=== PATIENT | male | born 1970 | race Caucasian/White ===

== ENCOUNTER 2019-05-08 13:27 | Emergency (ER) | payer OTHER ==
--- NOTE | 2019-05-08 14:09 | ED ---
Respiratory - HPI Summary HPI Summary: Patient is a 49 y/o M presenting to [facility] with a chief complaint of exertional SOB worsening since 05/02/2019. He reports that he and his family have been self- quarantining because his was at a conference in [facility] last week with possible exposure to a positive case of COVID-19 there. His had been feeling unwell but has since recovered. On 05/04/2019, the patient had a full respiratory panel and COVID-19, and all results were negative. He has continued to fell unwell. He has been using his Albuterol inhaler, which helps with chest tightness. He endorses sore throat, nausea, and myalgias. He denies any fevers/ chills/cough/nasal or chest congestion. Symptoms currently rated 4/10 in severity. No past medical history. Nonsmoker, rare EtOH, no substance use. Medications reviewed. Allergies noted. - History of Current Complaint Chief Complaint: EDUpperRespComplaint Stated Complaint: RESP ISSUE PER PT Time Seen by Provider: 05/08/19 13:29 Hx Obtained From: Patient Onset/Duration: Lasting Days, Still Present Current Severity: Moderate Pain Intensity: 4 Character: Dyspnea on Exertion Aggravating Factor(s): Nothing Alleviating Factor(s): Other - Albuterol inhaler relieves chest tightness Associated Signs and Symptoms: SOB, Chest Pain - tightness - Allergy/Home Medications Allergies/Adverse Reactions: Allergies Allergy/AdvReac Type Severity Reaction Status Date / Time codeine Allergy Hives Verified 05/08/19 13:36 morphine Allergy Hives Verified 05/08/19 13:36 Home Medications: Home Medications NK [No Home Medications Reported] 05/08/19 [History Confirmed 05/08/19] PMH/Surg Hx/FS Hx/Imm Hx Endocrine/Hematology History: Denies: Hx Diabetes, Hx Thyroid Disease Cardiovascular History: Denies: Hx Hypertension Respiratory History: Denies: Hx Asthma, Hx Chronic Obstructive Pulmonary Disease (COPD) GI History: Denies: Hx Ulcer Musculoskeletal History: Denies: Hx Rheumatoid Arthritis, Hx Osteoporosis - Surgical History Surgical History: Yes Surgery Procedure, Year, and Place: left knee surgery x2. left ankle. cochlear implant right Infectious Disease History: No Infectious Disease History: Denies: Hx Clostridium Difficile, Hx Hepatitis, Hx Human Immunodeficiency Virus (HIV), Hx of Known/Suspected MRSA, Hx Shingles, Hx Tuberculosis, Traveled Outside the [place] in Last 30 Days - Family History Known Family History: Negative: Diabetes, Renal Disease - Social History Alcohol Use: Rare Hx Substance Use: No Substance Use Type: Reports: None Hx Tobacco Use: No Smoking Status (MU): Never Smoked Tobacco Review of Systems Negative: Fever, Chills Positive: Sore Throat Positive: Chest Pain - tightness Positive: Shortness Of Breath, Cough. Negative: Other - nasal/chest congestion Positive: Nausea Positive: Myalgia All Other Systems Reviewed And Are Negative: Yes Physical Exam - Summary Physical Exam Summary: Constitutional: Well-developed, Well-nourished, Alert. Appears weak, fatigued. ( -) Distressed Skin: Warm, Dry HENT: Normocephalic; Atraumatic Eyes: Conjunctiva normal Neck: Musculoskeletal ROM normal neck. (-) JVD, (-) Stridor, (-) Tracheal deviation Cardio: Rhythm regular, rate normal, Heart sounds normal; Intact distal pulses; The pedal pulses are 2+ and symmetric. Radial pulses are 2+ and symmetric. (-) Murmur Pulmonary/Chest wall: Effort normal. (-) Respiratory distress, (-) Wheezes, (-) Rales Abd: Soft, (-) tenderness, (-) Distension, (-) Guarding, (-) Rebound Musculoskeletal: (-) Edema Lymph: (-) Cervical adenopathy Neuro: Alert, Oriented x3 Psych: Mood and affect Normal Triage Information Reviewed: Yes Vital Signs On Initial Exam: Initial Vitals Temp Pulse Resp BP Pulse Ox 98.2 F 70 16 113/72 100 05/08/19 13:31 05/08/19 13:31 05/08/19 13:31 05/08/19 13:31 05/08/19 13:31 Vital Signs Reviewed: Yes Procedures - Sedation Patient Received Moderate/Deep Sedation with Procedure: No Diagnostics - Vital Signs Vital Signs Temp Pulse Resp BP Pulse Ox 05/08/19 13:31 98.2 F 70 16 113/72 100 - Laboratory Result Diagrams: 05/08/19 14:40 05/08/19 14:40 Lab Statement: Any lab studies that have been ordered have been reviewed, and results considered in the medical decision making process. - Radiology CXR Radiology Interpretation Completed By: Radiologist Summary of Radiographic Findings: Impression: No active cardiopulmonary disease. Dr. Ramos has reviewed this report. - EKG 1509 Cardiac Rate: Bradycardia - 57 BPM EKG Rhythm: Sinus Bradycardia Summary of EKG Findings: An EKG at 1509 reveals sinus bradycardia at 57 BPM. Early repol pattern. Dr. Ramos has reviewed and interpreted this EKG. Re-Evaluation - Re-Evaluation First Eval Re-Evaluation Time: 15:50 Comment: Discussed results and plan for discharge. Disposition - Course Course Of Treatment: Patient is a 49 y/o M presenting with respiratory symptoms since 05/02/2019, including exertional SOB, sore throat, nausea, and myalgias. Tested for COVID-19 on 05/04/2019 with self-quarantine since returned home from a conference in [facility] with possible cases. COVID-19 and respiratory panel negative at that time. Patient appears weak/fatigued on physical exam. Patient intially on droplet/contact precuations which were then removed after reviewing patient's records. Patient received Duoneb. Blood work without significant abnormalities. An EKG at 1509 reveals sinus bradycardia at 57 BPM, early repol pattern. CXR is negative. Patient able to ambulate well and maintain O2. All results discussed with patient. Patient is safe for discharge. Patient is advised to follow up with PCP in 2-3 days. Return precautions given. Patient agreeable with plan. - Diagnoses Provider Diagnoses: Viral syndrome, Dyspnea Discharge ED - Sign-Out/Discharge Documenting (check all that apply): Patient Departure - Patient will be discharged home. - Discharge Plan Condition: Stable Disposition: HOME Patient Education Materials: Viral Syndrome (ED), Dyspnea (ED) Referrals: [facility] [Outside] - 2 Days Additional Instructions: Follow up with your primary care provider in 1-2 days. Return to the emergency department for any new or worsening symptoms. - Attestation Statements Document Initiated by Scribe: Yes Documenting Scribe: Tiffanie Schneider Provider For Whom Radha is Documenting (Include Credential): Junaid Ramos DO Scribe Attestation: Tiffanie Uribe, scribed for Junaid Ramos DO on 05/08/19 at 1609. Status of Scribe Document: Ready
[2019-05-08] MEDS ORDERED: Albuterol/Ipratropium NEB.SOL* Albuterol 2.5 MG/Ipratropium 0.5 MG 3 ML INH ONE (14:36)
--- OUTSIDE RECORDS SUMMARY | 2019-05-08 14:58 | XMS REPORT | Continuity of Care Document ---
:1970 External Reference #:[id number] Author Name Ciara Lindquist DO Address [address] [place] [address] Care Team Providers Name Role Phone Patient Choice Care Team Information Staff Development Coordinator Rn Unavailable Problems Description No Information Available Social History Type Date Description Comments Sex Unknown Allergies, Adverse Reactions, Alerts Description No Information Available Medications Description No Information Available Immunizations Description No Information Available Vital Signs Description No Information Available Results Test Acquired Date Facility Test Result H/L Range Note Laboratory test 05/04/2019 [facility] Miscellaneous Test < pending> finding [address] [place] [id number] [phone] Laboratory test 05/04/2019 [facility] Resppcr Panel <pending> finding ( )- - CFM Rapid Flu A 05/04/2019 [facility] Influenza A Rapid Negative & B ( )- - Test Influenza B Rapid Test Negative Laboratory test 05/04/2019 [facility] CFM Rapid Strep Negative finding ( )- - A Procedures Description No Information Available Medical Devices Description No Information Available Encounters Description No Information Available Assessments Date Code Description Provider 05/04/2019 R50.9 Fever, unspecified Ciara Lindquist DO 05/04/2019 R05 Cough Ciara Lindquist DO Plan of Treatment No Information Available Functional Status Description No Information Available Mental Status Description No Information Available Referrals Description No Information Available
--- OUTSIDE RECORDS SUMMARY | 2019-05-08 14:58 | XMS REPORT | Continuity of Care Document ---
:1970 External Reference #:[id number] Author Name Ciara Lindquist, Address [address] [place] [address] Care Team Providers Name Role Phone Patient Choice Care Team Information Welder Assistant Unavailable Problems Description No Information Available Social History Type Date Description Comments Sex Unknown Allergies, Adverse Reactions, Alerts Active Allergies Reaction Severity Comments Date Codeine Hives 05/04/2019 Medications Active Medications SIG Qnty Indications Ordering Provider Date Proair HFA 2 puffs every 6 8.500gm Ciara Lindquist, 05/05/2019 hours inhalation DO 108(90Base) mcg/Act as needed Aerosol Immunizations Description No Information Available Vital Signs Date Vital Result Comment 05/04/2019 10:35am BP Systolic 112 mmHg BP Diastolic 72 mmHg Heart Rate 74 /min Body Temperature 97.3 F O2 % BldC Oximetry 97 % Results Test Acquired Date Facility Test Result H/L Range Note Laboratory test 05/04/2019 [facility] Miscellaneous <pending> finding [address] [place] [address] [phone] Laboratory test 05/04/2019 [facility] Resppcr Panel <pending> finding ( )- - Laboratory test 05/04/2019 [facility] Viral Culture SEE RESULT 1, [address] [place] [address] [phone] CFM Rapid Flu A 05/04/2019 [facility] Influenza A Rapid Negative & B ( )- - Test Influenza B Rapid Test Negative Laboratory test 05/04/2019 [facility] CFM Rapid Strep Negative finding ( )- - A 1 [id number] 2 SEE RESULT BELOW Name: NERY MARTINEZ : [address]: Ciara Lindquist DO Acct: [id number] Unit: [id number] AGE: 49 Location: [facility] Re05/04/19 SEX: M Status: REG REF SPEC: [id number] RUSSELL: 05/04/19-939 [facility] DR: Ciara Lindquist DO REQ: [id number] RECD: 05/04/19-1256 STATUS: COMP _ SOURCE: [facility]: ORDERED: Viral Cult [place] COMMENTS: NASOPHARYNGEAL AND OROPHARYNGEAL FOR COVID-19 Procedure Result Reported Site Viral Culture [facility] Final 05/06/19- 1620 ML 2019 nCoV Real-Time RT-PCR: Not Detected 05/06/2019 NOTE: The [facility] is approved by the Centers for Disease Control and Prevention (CDC) to test for 2019 novel coronavirus (2019_nCoV). The real-time RT-PCR assay for 2019_nCoV was developed by the CDC for the purpose of diagnostic testing to allow for rapid response during a declared public health emergency and has Emergency Use Authorization (EUA) from the FDA. At this time, positive 2019_nCoV real-time RT-PCR results should be considered presumptive until CDC confirmation. Negative 2019_nCoV RT-PCR results do not preclude 2019_nCoV infection and should not be used as the sole basis for patient management decisions. Additional information is available on the following FDA websites for health care providers and patients. https://www.fda.gov/media/689753/download https://www.fda.gov/media/157770/download Test Performed by: [address] [address] * ML - Main Lab . END OF REPORT DEPARTMENT OF PATHOLOGY, [address] [place] [address] Alexander Bowman M.D. Director [facility] # [id number] Procedures Description No Information Available Medical Devices Description No Information Available Encounters Type Date Location Provider Dx Diagnosis Office Visit 05/04/2019 8:45a CFM Main Ciara KarDO jessica R50.9 Fever, unspecified R05 Cough Assessments Date Code Description Provider 05/04/2019 R50.9 Fever, unspecified Ciara Karjessica DO 05/04/2019 R05 Cough Ciara ReggieDO jessica Plan of Treatment 05/04/2019 - Ciara Paredesjessica, DOR50.9 Fever, unspecifiedComments:Rapid flu negative Rapid strep negativeUsing appropriate PPE (gloves, goggles, mask and gown) pt wasseen and examinedHealth department contacted and agree with COVID- 19 testing given his symptoms and known exposure (via )Viral respiratory culture as well as COVID testing collected and sent to labPt advised strick quarantine until we get results Following day they asked for albuterol inhaler to be sent, which I did We reviewed in detail when to be seen again ([place] for worsening respiratory symptoms) otherwise we would be in touch with results and health department following closely as wellR05 Cough Functional Status Description No Information Available Mental Status Description No Information Available Referrals Description No Information Available
[2019-05-08 15:01] LABS: ABS Eosinophils 0.1 10^3/ul (0-0.6); ABS Lymphocytes 1.2 10^3/ul (1.0-4.8); ABS Monocytes 0.5 10^3/ul (0-0.8); ABS Neutrophils 3.1 10^3/ul (1.5-7.7); Eosinophil % 2.2 %; Hematocrit 42 % (42-52); Hemoglobin 14.5 g/dL (14.0-18.0); Lymphocyte % 24.9 %; Mean Corpuscular HGB Conc 35 g/dL (31-36); Mean Corpuscular Hemoglobin 31 pg (27-31); Mean Corpuscular Volume 89 fL (80-94); Mean Platelet Volume 9.1 fL (7.4-10.4); Nucleated Red Blood Cells % 0.1; Platelet Count 169 10^3/uL (150-450); Red Blood Count 4.68 10^6 /uL (4.18-5.48); Red Cell Distribution Width 13 % (10-15)
[2019-05-08 15:22] LABS: Albumin 4.2 g/dL (3.2-5.2); Albumin/Globulin Ratio 1.4 (1-3); BUN/Creatinine Ratio 12.9 (8-20); Calcium 9.7 mg/dL (8.6-10.3); EGFR Non-African American 78.5 (>60); Globulin 2.9 g/dL (2-4); Potassium 3.8 mmol/L (3.5-5.0); Total Bilirubin 1.5 mg/dL (0.2-1.0); Total Protein 7.1 g/dL (6.4-8.9)
[2019-05-08 16:17] VITALS: BP 128/66
== END 2019-05-08 16:16 | disposition home or self-care (01) ==
LOC: ED 13:27
DX: B34.9 Viral infection, unspecified (principal); R06.00 Dyspnea, unspecified; R06.02 Shortness of breath; R07.9 Chest pain, unspecified; Z88.6 Allergy status to analgesic agent
CPT/HCPCS: 36415; 71045; 80053; 84484; 85025; 85379; 93005; 99282; A9270-GY

== ENCOUNTER 2019-05-22 04:49 | Emergency (ER) | payer OTHER ==
--- NOTE | 2019-05-22 04:57 | ED ---
HPI Chest Pain - HPI Summary HPI Summary: 49 year old previously healthy M presenting to [facility] via EMS with a chief complaint of chest discomfort, weakness, shortness of breath, and fevers to 102 degrees since yesterday. Patient reports a mild sore throat. The patient began to develop an illness with chest discomfort, fevers, and a cough 3 weeks ago with his after his went to a conference in [facility] where she was exposed to patients who were later diagnosed with COVID-19. The patient's symptoms had improved and he felt better for the past few days. Patient denies any GI symptoms or headache. Medication list reviewed. Allergy list reviewed. - History of Current Complaint Time Seen by Provider: 05/22/19 04:50 Hx Obtained From: Patient, EMS Onset/Duration: Started Days Ago Timing: Constant Associated Signs and Symptoms: Positive: Other: - Sore throat. Negative: Headaches - Allergy/Home Medications Allergies/Adverse Reactions: Allergies Allergy/AdvReac Type Severity Reaction Status Date / Time codeine Allergy Hives Verified 05/22/19 05:17 morphine Allergy Hives Verified 05/22/19 05:17 Home Medications: Home Medications Azithromycin TAB* [Zithromax TAB (Z-REINA) 250 mg #6 tabs] 250 mg PO DAILY #4 tab 05/22/19 [Rx] PMH/Surg Hx/FS Hx/Imm Hx Endocrine/Hematology History: Denies: Hx Diabetes, Hx Thyroid Disease Cardiovascular History: Denies: Hx Hypertension Respiratory History: Denies: Hx Asthma, Hx Chronic Obstructive Pulmonary Disease (COPD) GI History: Denies: Hx Ulcer Musculoskeletal History: Denies: Hx Rheumatoid Arthritis, Hx Osteoporosis - Surgical History Surgery Procedure, Year, and Place: left knee surgery x2. left ankle. cochlear implant right Infectious Disease History: Denies: Hx Clostridium Difficile, Hx Hepatitis, Hx Human Immunodeficiency Virus (HIV), Hx of Known/Suspected MRSA, Hx Shingles, Hx Tuberculosis - Family History Known Family History: Negative: Diabetes, Renal Disease - Social History Alcohol Use: Rare Hx Substance Use: No Substance Use Type: Reports: None Hx Tobacco Use: No Smoking Status (MU): Never Smoked Tobacco Review of Systems Positive: Fever Positive: Sore Throat Positive: Chest Pain Positive: Shortness Of Breath, Cough Negative: Vomiting Positive: Weakness. Negative: Headache All Other Systems Reviewed And Are Negative: Yes Physical Exam - Summary Physical Exam Summary: Appearance: Well-appearing, Well-nourished, lying in bed comfortably Skin: Warm, dry, no obvious rash Eyes: sclera anicteric, no conjunctival pallor HENT: mucous membranes moist, pharynx appears normal Neck: Supple, nontender Respiratory: Clear to auscultation, no signs of respiratory distress Cardiovascular: Normal S1, S2. No murmurs. Normal distal pulses in tibial and radial bilaterally. Abdomen: Soft, nontender, normal active bowel sounds present Musculoskeletal: Normal, Strength/ROM Intact Neurological: A&Ox3, awake and alert, mentation is normal, speech is fluent and appropriate Psychiatric: affect is normal, does not appear anxious or depressed Triage Information Reviewed: Yes Vital Signs Reviewed: Yes Procedures - Sedation Patient Received Moderate/Deep Sedation with Procedure: No Diagnostics - Laboratory Result Diagrams: 05/22/19 05:39 05/22/19 05:39 Lab Statement: Any lab studies that have been ordered have been reviewed, and results considered in the medical decision making process. - Radiology Chest x-ray Radiology Interpretation Completed By: ED Physician Summary of Radiographic Findings: No acute process. ED physician has reviewed and interpreted this report. - EKG 05:28 Cardiac Rate: NL - 70 BPM EKG Rhythm: Sinus Rhythm Summary of EKG Findings: NSR at 70 BPM, P waves, QRS complex, and T waves are within normal limits, T waves and intervals are normal, no ischemic changes. This is a normal EKG. ED physician has reviewed and interpreted this EKG. Chest Pain Course/Dx - Course Course Of Treatment: 49 year old previously healthy M presenting to [facility] via EMS with a chief complaint of chest discomfort, weakness, shortness of breath, and fevers to 102 degrees since yesterday. Patient reports a mild sore throat. Physical exam findings reveal no abnormalities. An EKG reveals NSR at 70 BPM, P waves, QRS complex, and T waves are within normal limits, T waves and intervals are normal, no ischemic changes. CXR reveals, per ED physician, no acute process. Test results with no significant abnormalities except for a glucose of 119, total bilirubin of 1.60, C-Reactive protein of 14.60, WBC of 17.9, Hct of 41, absolute neuts of 15.4, absolute monos of 1.3, and lactic acid of 2.1. In the ED course, the patient was given Azithromycin. Patient will be discharged with prescription for Azithromycin. The patient is agreeable with this plan. - Diagnoses Provider Diagnoses: Fever, URI (upper respiratory infection) Discharge ED - Sign-Out/Discharge Documenting (check all that apply): Patient Departure - Discharge Plan Condition: Good Disposition: HOME Prescriptions: Azithromycin TAB* [Zithromax TAB (Z-REINA) 250 mg #6 tabs] 250 mg PO DAILY #4 tab Patient Education Materials: Fever in Adults (ED), Upper Respiratory Infection (ED) Forms: COVID-19 Tested & Isolation Referrals: [facility] [Outside] - Billing Disposition and Condition Condition: GOOD Disposition: Home - Attestation Statements Document Initiated by Scribe: Yes Documenting Scribe: Melinda Levin Provider For Whom Radha is Documenting (Include Credential): Ricky Vaughn MD Scribe Attestation: Melinda Uribe scribed for Ricky Vaughn MD on 05/27/19 at 0047. Scribe Documentation Reviewed: Yes Provider Attestation: The documentation as recorded by the Melinda casey accurately reflects the service I personally performed and the decisions made by me, Ricky Vaughn MD Status of Scribe Document: Viewed
[2019-05-22 05:53] LABS: ABS Lymphocytes 1.1 10^3/ul (1.0-4.8); ABS Monocytes 1.3 10^3/ul (0-0.8); ABS Neutrophils 15.4 10^3/ul (1.5-7.7); Eosinophil % 0.1 %; Hematocrit 41 % (42-52); Hemoglobin 14.2 g/dL (14.0-18.0); Lymphocyte % 6.4 %; Mean Corpuscular HGB Conc 35 g/dL (31-36); Mean Corpuscular Hemoglobin 31 pg (27-31); Mean Corpuscular Volume 88 fL (80-94); Mean Platelet Volume 9.4 fL (7.4-10.4); Platelet Count 170 10^3/uL (150-450); Red Blood Count 4.64 10^6 /uL (4.18-5.48); Red Cell Distribution Width 13 % (10-15); White Blood Count 17.9 10^3/uL (3.5-10.8)
[2019-05-22 06:13] LABS: Troponin I 0.01 ng/mL (<0.03)
[2019-05-22 06:14] LABS: Albumin/Globulin Ratio 1.4 (1-3); BUN/Creatinine Ratio 15.2 (8-20); C Reactive Protein 14.6 mg/L (<8.01); Calcium 9.4 mg/dL (8.6-10.3); EGFR African American 97.2 (>60); EGFR Non-African American 80.3 (>60); Globulin 2.8 g/dL (2-4); Potassium 3.6 mmol/L (3.5-5.0); Total Bilirubin 1.6 mg/dL (0.2-1.0); Total Protein 6.8 g/dL (6.4-8.9)
[2019-05-22] MEDS ORDERED: Azithromycin TAB* 250 MG PO ONE (06:16)
[2019-05-22 06:24] VITALS: BP 108/70
--- OUTSIDE RECORDS SUMMARY | 2019-05-22 08:18 | XMS REPORT | Continuity of Care Document ---
:1970 External Reference #:[id number] Author Name Ciara Lindqiust DO (transmitted by agent of provider [facility]) Address [address] [place] [address] [place] [address] Care Team Providers Name Role Phone Patient Choice Care Team Information Quality Assistant Unavailable Problems Description No Information Available [...] Result H/L Range Note Laboratory test 05/04/2019 [facility] Miscellaneous <pending> finding [address] [place] [address] [phone] Laboratory test 05/04/2019 [facility] Resppcr Panel <pending> finding ( )- - Laboratory test 05/04/2019 [facility] Viral Culture SEE RESULT 1, [address] [place] [address] [phone] CFM Rapid Flu A 05/04/2019 [facility] Influenza A Rapid Negative & B ( )- - Test Influenza B Rapid Test Negative Laboratory test 05/04/2019 [facility] CFM Rapid Strep Negative finding ( )- - A 1 [id number] 2 SEE RESULT BELOW Name: NERY KRAUSE : [address]: Ciara Lindquist DO Acct: [id number] Unit: [id number] AGE: 49 Location: [facility] Re05/04/19 SEX: M Status: REG REF SPEC: [id number] RUSSELL: 05/04/19-40 [facility] [address]: Ciara Lindquist DO REQ: [id number] RECD: 05/04/19-1256 STATUS: COMP _ SOURCE: [facility]: ORDERED: Viral Cult [place] COMMENTS: NASOPHARYNGEAL AND OROPHARYNGEAL FOR COVID-19 Procedure Result Reported Site Viral Culture [facility] Final 05/06/19- 1620 ML 2019 nCoV Real-Time RT-PCR: Not Detected 05/06/2019 NOTE: The [facility] is approved by the Centers for [...] websites for health care providers and patients. https://www.fda.gov/media/036726/download https://www.fda.gov/media/117653/download Test Performed by: [address] [address] * ML - Main Lab . END OF REPORT DEPARTMENT OF PATHOLOGY, [address] [place] [address] Alexander Bowman M.D. Director [facility] # [id number] Procedures Description No Information Available Medical Devices Description No Information Available Encounters Type Date Location Provider Dx Diagnosis Office Visit 05/04/2019 8:45a CFM Main Ciara Lindquist DO R50.9 Fever, unspecified R05 Cough Z03.818 Encntr for obs for susp expsr to oth biolg agents ruled out Assessments Date Code Description Provider 05/04/2019 R50.9 Fever, unspecified Ciara Lindquist, DO 05/04/2019 R05 Cough Ciara Lindquist, DO 05/04/2019 Z03.818 Encounter for observation for suspected Ciara Lindquist DO exposure to other biological agents ruled out Plan of Treatment 05/04/2019 - Ciara Lindquist DOR50.9 Fever, unspecifiedComments:Rapid flu negative Rapid strep [...] and health department following closely as wellR05 AgzhfA92.818 Encounter for observation for suspected exposure to other biological agents ruled out Functional Status Description No Information Available Mental Status Description No Information Available Referrals Description No Information Available
== END 2019-05-22 06:55 | disposition home or self-care (01) ==
LOC: ED 04:49
DX: J06.9 Acute upper respiratory infection, unspecified (principal); J02.9 Acute pharyngitis, unspecified; R50.9 Fever, unspecified; R06.02 Shortness of breath; R07.9 Chest pain, unspecified; Z88.6 Allergy status to analgesic agent; Z20.828 Contact with and (suspected) exposure to other viral communicable diseases
CPT/HCPCS: 36415; 71045; 80053; 83605; 84484; 85025; 86140; 87040; 87635; 93005; 99284; A9270-GY